=== PATIENT | female | born 1970 | race Two or more races ===

== ENCOUNTER 2022-08-05 13:03 | Emergency (ER) | payer SELFPAY ==
[~2022-08-05] VITALS: Ht 154.9 cm; Wt 86.2 kg
--- NOTE | 2022-08-05 13:23 | NUR ---
[facility] in [facility] - 08/05/22 at 1326 by DONATO CP, after introduction of anesthesia - 911 called - nitro SL given by paramedics
--- NOTE | 2022-08-05 13:26 | NUR ---
CP, after introduction of anesthesia by he dentist - 911 called - nitro SL given by paramedics
[2022-08-05] MEDS ORDERED: ACETAMINOPHEN ES 500 MG TABLET ONE (15:15)
[2022-08-05] MEDS: IV NS 0.9% 500 ML BAG IV ONE (15:16)
[2022-08-05] MEDS: ACETAMINOPHEN ES 500 MG TABLET PO ONE (15:16)
[2022-08-05 15:38] LABS: BASOPHILS % (AUTO) 0.2 % (0.0-2.0); EOSINOPHILS % (AUTO) 2.4 % (0.0-6.0); HEMATOCRIT 39 % (33-45); HEMOGLOBIN 13.2 g/dL (11.5-14.8); LYMPHOCYTES # (AUTO) 1.7 K/uL (0.8-4.8); LYMPHOCYTES % (AUTO) 29.2 % (20.0-44.0); MEAN CORPUSCULAR HGB CONC 33 g/dl (31.0-36.0); MEAN CORPUSCULAR VOLUME 84 fL (82-100); MONOCYTES # (AUTO) 0.3 K/uL (0.1-1.30); MONOCYTES % (AUTO) 5.6 % (2.0-12.0); NEUTROPHILS # (AUTO) 3.6 K/uL (1.8-8.9); NEUTROPHILS % (AUTO) 62.6 % (43.0-81.0); PLATELET COUNT (AUTO) 285 K/uL (150-450); RED BLOOD CELL COUNT(AUTO) 4.71 MIL/uL (4.0-5.2); WHITE BLOOD COUNT (AUTO) 5.7 K/uL (4.3-11.0)
[2022-08-05 15:48] LABS: CALCIUM, SERUM 8.8 mg/dL (8.5-10.1); CARBON DIOXIDE 27 mmol/L (21-32); CHLORIDE 106 mmol/L (98-107); CREATININE 0.6 mg/dL (0.6-1.3); GLUCOSE 87 mg/dL (74-106); POTASSIUM 3.3 mmol/L (3.5-5.1); SODIUM SERUM 139 mmol/L (136-145); UREA NITROGEN, BLOOD 17 mg/dL (7-18)
[2022-08-05 18:20] VITALS: BP 128/71
--- NOTE | 2022-08-05 18:20 | NUR ---
Patient discharged to home in stable condition. Written and verbal after care instructions given. Patient verbalizes understanding of instruction.IV removed. Catheter intact and site benign. Pressure and 4x4 applied to site. No bleeding noted.
== END 2022-08-05 18:20 | disposition home or self-care (01) ==
LOC: ER 13:13
DX: R07.89 Other chest pain (principal); T41.3X5A Adverse effect of local anesthetics, initial encounter; T44.5X5A Adverse effect of predominantly beta-adrenoreceptor agonists, initial encounter; Y92.89 Other specified places as the place of occurrence of the external cause
CPT/HCPCS: 99285; 71045; 93005 ×3; 85025; 80048; 36415; 84484 ×2; J7030; J7040